=== PATIENT | female | born 1975 | race Caucasian/White ===

== ENCOUNTER 2021-08-16 16:55 | Emergency (ER) | payer MEDICAID, OTHER ==
[~2021-08-16] VITALS: Ht 149.9 cm; Wt 84.0 kg
[~2021-08-16 16:55] MED LIST: HYDR100T26 PO; HYDR25TA PO; LOSA100T3 PO
[2021-08-16 17:58] LABS: BASOPHILS % 1.1 % (0.0-2.0); EOSINOPHILS % 2.4 % (0.0-5.0); HEMOGLOBIN. 13.7 g/dL (12.0-16.0); LYMPHOCYTES % 27.3 % (20.0-50.0); MEAN CORPUSCULAR HEMOGLOBIN 26.8 pg (28.0-32.0); MEAN CORPUSCULAR VOLUME 80.2 fL (81.0-99.0); MEAN PLATELET VOLUME 8.4 fl (7.4-10.4); MONOCYTES % 6.1 % (2.0-8.0); NEUTROPHILS % 63.1 % (40.0-76.0); PLATELET 284 x1000/uL (130-400); RED BLOOD CELL COUNT 5.12 mill/uL (4.2-5.4); RED CELL DISTRIBUTION WIDTH 14.1 % (11.6-14.6)
[2021-08-16 18:14] LABS: CHLORIDE 98 mEq/L (98-107)
[2021-08-16] MEDS ORDERED: POTASSIUM CHLORIDE 20MEQ TABLET SR PO ONE (19:15)
[2021-08-16] MEDS ORDERED: AMLODIPINE 10MG TABLET PO ONE (19:15)
[2021-08-16] MEDS ORDERED: HYDRALAZINE 20MG/ML VIAL IV ONE (21:00)
[2021-08-16 23:39] VITALS: BP 160/90
== END 2021-08-17 00:40 | disposition short-term general hospital (02) ==
LOC: ER 16:55 → CANBEDREQ 23:22 → ER 08-17 00:40
DX: I67.4 Hypertensive encephalopathy (principal); E87.6 Hypokalemia; I10 Essential (primary) hypertension
CPT/HCPCS: 36415; 70450; 71045; 80053; 84484; 85025; 93005; 96374; 99291; J0360